=== PATIENT | male | born 1950 | race Hispanic/Latino ===

== ENCOUNTER 2019-06-25 07:36 | Day surgery (SDC) | payer MEDICARE ==
[2019-06-25] MEDS ORDERED: ASPIRIN EC 325 MG TAB PO NR (08:21)
[2019-06-25] MEDS ORDERED: SODIUM CHLORIDE 0.9% 500 ML 500 ML IV SCH (09:00)
[2019-06-25 09:03] LABS: Basophils # (Auto) 0.2 K/mm3 (0.0-0.1); Basophils % (Auto) 2.5 % (0.0-1.8); Eosinophils # (Auto) 0.5 K/mm3 (0.0-0.4); Eosinophils % (Auto) 8.5 % (0.0-4.3); Hematocrit 39.8 % (35.5-45.6); Hemoglobin 13.6 gm/dl (11.8-15.2); Lymphocytes # (Auto) 0.8 K/mm3 (1.2-5.4); Mean Corpuscular HGB Conc 34 % (32-34); Mean Corpuscular Volume 87 fl (84-94); Monocytes # (Auto) 0.6 K/mm3 (0.0-0.8); Monocytes % (Auto) 10.1 % (0.0-7.3); Platelet Count 305 K/mm3 (140-440); Red Blood Count 4.56 M/mm3 (3.65-5.03); Red Cell Distribution Width 14.2 % (13.2-15.2)
[2019-06-25 09:18] LABS: BUN/Creatinine Ratio 17; Blood Urea Nitrogen 15 mg/dL (9-20); Calcium 8.9 mg/dL (8.4-10.2); Hemolysis Index 3
[2019-06-25 09:20] LABS: INR 0.98 (0.87-1.13)
[2019-06-25 09:21] LABS: Partial Thromboplastin Time 26.1 Sec. (24.2-36.6)
[2019-06-25] MEDS ORDERED: HEPARIN/NS 5000 UNIT/500ML 1,000 ML IR ONE (09:30)
[2019-06-25] MEDS ORDERED: MIDAZOLAM 2 MG/2 ML INJ ONE (09:30)
[2019-06-25] MEDS ORDERED: fentaNYL 100 MCG/2 ML INJ ONE (09:30)
[2019-06-25] MEDS ORDERED: NITROGLYCERIN SYRINGE 3 ML ONE (09:31)
[2019-06-25] MEDS ORDERED: LIDOCAINE (2%) 20 MG/1 ML VIAL 20 ML MDV INFILTRATI ONE (09:31)
[2019-06-25] MEDS: VERAPAMIL 5 MG/2 ML INJ ONE ×2 (10:01→10:03)
[2019-06-25] MEDS: HEPARIN 10,000 UNITS/10 ML VIAL ONE ×2 (10:02→10:03)
--- NOTE | 2019-06-25 11:26 | Short Stay Summary ---
Short Stay Documentation Date of service: 06/25/19 - History H&P: obtained from office - Allergies and Medications Current Medications: Allergies No Known Allergies Allergy (Verified 06/25/19 08:21) Home Medications Medication Instructions Recorded Confirmed Last Taken Type Metoprolol [Lopressor TAB] 25 mg PO BID 06/25/19 06/25/19 06/24/19 History 25 mg Active Medications Sodium Chloride (Nacl 0.9% 500 Ml) 500 mls @ 50 mls/hr IV DIRECT JACOB Stop: 06/25/19 18:59 Last Admin: 06/25/19 09:01 Dose: 50 mls/hr Documented by: - Brief post op/procedure progress note Date of procedure: 06/25/19 Pre-op diagnosis: angina Post-op diagnosis: same Procedure: see report Anesthesia: local Estimated blood loss: none Pathology: none - Disposition Condition at discharge: Good Disposition: [id number] TO HOME OR SELFCARE - Discharge Diagnoses (1) CAD (coronary artery disease) Status: Acute Qualifiers: Coronary Disease-Associated Artery/Lesion type: ione artery [place] vs. transplanted heart: ione heart Associated angina: with stable angina Qualified Code(s): I25.118 - Atherosclerotic heart disease of ione coronary artery with other forms of angina pectoris (2) Hyperlipemia, mixed Status: Chronic Short Stay Discharge Plan Activity: advance as tolerated, no driving until cleared by PCP Diet: regular, low fat, low cholesterol, low salt Wound: keep clean and dry Follow up with: RUIZ SULTANA MD [Primary Care Provider] - 7 Days Forms: CardCath PCI D/C Instructions Prescriptions: AtorvaSTATin [Lipitor] 40 mg PO QHS #30 tablet
--- NOTE | 2019-06-25 11:45 | Cardiac Catherization Report ---
ORDERING PHYSICIAN: Dr. Mayito Fisher. Being done by Dr. Velasco. CLINICAL INFORMATION: This is a 68-year-old gentleman who had chest pain with a markedly abnormal stress test with septal and anterior wall large ischemia and having anginal symptoms with large ischemia, is here for a left heart catheterization, done with moderate sedation, started at 9:57 a.m., finished at 10:15, which is 18 minutes of moderate sedation. Procedure was done via the right radial artery, sterile technique, local anesthesia, 6-Telugu radial sheath inserted. PROCEDURE FINDINGS: Left system engaged with JL3.5 catheter. Left main is short and patent, of medium caliber than the LAD, is a large caliber vessel but ostial and proximal has an 80-90% lesion. The rest of the LAD is a large caliber vessel, patent with mild luminal irregularities. Diagonal 1 is a medium caliber vessel, patent. Circumflex is a large caliber vessel, is patent with mild luminal irregularities, goes into a large OM1 that is patent with mild luminal irregularities. RCA engaged with JR4, is a large dominant vessel, is patent with mild luminal irregularities. PDA and PLV are medium caliber vessels, patent. LV gram done in [place] and [place]ELA view shows normal LV function, LVEDP of 23 mmHg, LV is 124 mmHg. Aortic is 124/70 mmHg. No gradient across the aortic valve on pullback; 5-Telugu catheters all taken over guidewire, 6-Telugu radial sheath was discontinued. Radial band applied. No hematoma, no bleeding. SUMMARY: 1. Left main large caliber vessel, short, patent, but LAD ostial and proximal 80-90%. Rest of the LAD is large and patent, mild luminal irregularities. Diagonal 1 medium caliber and patent. Circumflex is a large caliber vessel, patent with mild luminal irregularities. OM1 large caliber vessel, is patent, mild luminal irregularities. RCA large, dominant vessel, patent with mild luminal irregularities with normal LV function. 2. The patient will be referred to [facility] for a robotic NICHOLSON to LAD. In view of the location of the lesion, intervention would not be feasible at this time. The patient is currently chest pain free. The patient will see [facility] as an outpatient for robotic NICHOLSON to LAD. The patient is being treated medically with aspirin, beta juan and statin medication. The patient and the patient's family advised if any recurrent chest pain to take him emergently to the hospital and to limit physical activities. JOB# [id number] SRAVANI/PIERRE PRIETO
[2019-06-25 13:02] VITALS: BP 120/64
== END 2019-06-25 13:30 | disposition home or self-care (01) ==
LOC: CATHLABREC 07:36
PROVIDERS: ATTEND Internal Medicine
DX: R07.89 Other chest pain (principal); R94.39 Abnormal result of other cardiovascular function study; I25.10 Atherosclerotic heart disease of native coronary artery without angina pectoris; E78.2 Mixed hyperlipidemia; Z85.46 Personal history of malignant neoplasm of prostate; Z98.890 Other specified postprocedural states; Z79.899 Other long term (current) drug therapy
CPT/HCPCS: 36415; 80048; 85025; 85610; 85730; 93005; 93010; 93458; 99156; C1894; J1644; J2250; J3010; J7040; Q9967